=== PATIENT | male | born 1965 | race Two or more races ===

== ENCOUNTER 2020-06-23 10:28 | Emergency (ER) | payer OTHER, MEDICAID ==
[~2020-06-23] VITALS: Ht 175.3 cm; Wt 102.1 kg
[~2020-06-23 10:28] MED LIST: BENZ1TAB2 PO; FLUP5TAB14 PO; OLAN10TA23 PO
[2020-06-23 10:58] VITALS: BP 131/92
== END 2020-06-23 11:31 | disposition home or self-care (01) ==
LOC: ER 10:28
DX: K43.9 Ventral hernia without obstruction or gangrene (principal); K80.20 Calculus of gallbladder without cholecystitis without obstruction; F20.9 Schizophrenia, unspecified; F17.210 Nicotine dependence, cigarettes, uncomplicated; Z79.899 Other long term (current) drug therapy
CPT/HCPCS: 74176